=== PATIENT | female | born 1965 | race Two or more races ===

== ENCOUNTER 2023-08-20 18:23 | Emergency (ER) | payer OTHER ==
[~2023-08-20] VITALS: Ht 157.5 cm; Wt 99.8 kg
[2023-08-20] MEDS ORDERED: ACYCLOVIR10 GM PO (18:34)
[2023-08-20] MEDS ORDERED: PLAQUENIL PO (18:35)
[2023-08-20] MEDS ORDERED: OxyCODONE HCL/APAP UD (PERCOCET) PO STA (21:21)
[2023-08-20] MEDS ORDERED: CLINDAMYCIN PHOSPHATE 150 MG/ML (900mg) IV STA (21:21)
== END 2023-08-20 21:46 | disposition home or self-care (01) ==
LOC: ER 18:24
DX: L02.32 Furuncle of buttock (principal); Z88.6 Allergy status to analgesic agent; Z91.040 Latex allergy status; Z91.018 Allergy to other foods; Z91.013 Allergy to seafood